=== PATIENT | male | born 1960 | race Caucasian/White ===

== ENCOUNTER 2022-05-07 17:53 | Emergency (ER) | payer MEDICAID ==
[~2022-05-07] VITALS: Ht 170.2 cm; Wt 138.0 kg
[2022-05-07 18:02] VITALS: BP 132/92
[2022-05-07] MEDS ORDERED: IBUP-2029 MT (23:12)
== END 2022-05-07 23:30 | disposition home or self-care (01) ==
LOC: ER 17:53
DX: G89.29 Other chronic pain (principal); M79.18 Myalgia, other site; Z59.02 Unsheltered homelessness; Z60.9 Problem related to social environment, unspecified
CPT/HCPCS: 99282